=== PATIENT | female | born 1990 | race Caucasian/White ===

== ENCOUNTER 2017-06-10 22:47 | Inpatient (IN) | payer OTHER ==
[2017-06-10] MEDS: LACTATED RINGER'S 500 ML IV (23:08)
[2017-06-10] MEDS ORDERED: METHYLERGONOVINE 0.2 MG INJ IM (23:30)
[2017-06-10] MEDS ORDERED: HYDROCODONE/APAP (5/325) TAB PO (23:30)
[2017-06-10] MEDS ORDERED: MISOPROSTOL 200 MCG TAB PR (23:30)
[2017-06-10] MEDS ORDERED: BUTORPHANOL 2 MG INJ IV (23:30)
[2017-06-10] MEDS ORDERED: OXYTOCIN 30 UNITS/LR 500 ML IV ×2 (23:30)
[2017-06-10] MEDS ORDERED: CARBOPROST 250 MCG INJ IM (23:30)
[2017-06-10] MEDS ORDERED: LIDOCAINE 1% (MPF) 30 ML INJ INJ (23:30)
[2017-06-10] MEDS ORDERED: IBUPROFEN 600 MG TAB PO (23:30)
[2017-06-10] MEDS: LACTATED RINGER'S 1,000 ML IV (23:55)
[2017-06-11 01:03] LABS: ADD MAN DIFF? NO
[2017-06-11 01:06] LABS: WHITE BLOOD COUNT 5.4 10^3/ul (4.8-10.8)
[2017-06-11 01:06] LABS: BASOPHILS % 0.6 % (0.0-2.0); EOSINOPHILS # 0.1 10^3/ul (0.0-0.5); EOSINOPHILS % 2.4 % (0.0-7.0); HEMATOCRIT 36.3 % (37.0-47.0); HEMOGLOBIN 12.9 g/dl (12.0-16.0); LYMPHOCYTES % 36.8 % (15.0-51.0); MEAN CORPUSCULAR HEMOGLOBIN 31.8 pg (29.0-33.0); MEAN CORPUSCULAR HGB CONC 35.5 g/dl (32.0-37.0); MEAN CORPUSCULAR VOLUME 89.4 fl (82.0-101.0); MEAN PLATELET VOLUME 11.5 fl (7.4-10.4); MONOCYTE # 0.4 10^3/ul (0.3-0.9); MONOCYTES % 6.5 % (0.0-11.0); NEUTROPHIL # 2.9 10^3/ul (1.6-7.5); NUCLEATED RED BLOOD CELLS% 0.6 /100WBC (0.0-0.0); PLATELET COUNT 115 10^3/UL (140-415); RED BLOOD COUNT 4.06 10^6/ul (4.20-5.40); RED CELL DISTRIBUTION WIDTH 13.3 % (11.5-14.5)
[2017-06-11 01:24] LABS: PROTIME 11.1 Sec (11.9-14.9); PT RATIO 0.9
[2017-06-11 01:41] LABS: HEPATITIS B SURFACE ANTIGEN NEGATIVE (NEGATIVE)
[2017-06-11] MEDS: LACTATED RINGER'S 500 ML IV ×3 (03:08→11:08)
[2017-06-11] MEDS: LACTATED RINGER'S 1,000 ML IV (07:19)
[2017-06-11] MEDS: BUTORPHANOL 2 MG INJ IV (08:12)
[2017-06-11] MEDS: OXYTOCIN 30 UNITS/LR 500 ML IV ×4 (10:52→18:15)
[2017-06-11] MEDS ORDERED: DIBUCAINE 1% 30 GM OINT PR (16:00)
[2017-06-11] MEDS ORDERED: OXYCODONE/ASPIRIN (4.88/325) TAB PO ×2 (16:00)
[2017-06-11] MEDS ORDERED: ACETAMINOPHEN 325 MG TAB PO (16:00)
[2017-06-11] MEDS ORDERED: HYDROCODONE/APAP (5/325) TAB PO ×2 (16:00)
[2017-06-11] MEDS ORDERED: ONDANSETRON 4 MG INJ IV (16:00)
[2017-06-11] MEDS: WITCH HAZEL/GLYCERIN PAD PR (16:52)
[2017-06-11] MEDS: BENZOCAINE 20% 56 ML SPRAY TOP (16:52)
[2017-06-11] MEDS: IBUPROFEN 600 MG TAB PO ×2 (18:14→23:38)
[2017-06-11] MEDS: SENNA/DOCUSATE NA (8.6MG/50MG) TAB PO (21:27)
[2017-06-11] MEDS: LANOLIN 7 GM TUBE TOP (21:27)
[2017-06-11 22:30] LABS: RAPID PLASMA REAGIN NONREACTIVE (NR)
[2017-06-12] MEDS: IBUPROFEN 600 MG TAB PO ×3 (05:49→18:00)
[2017-06-12 08:14] LABS: ABNORMAL IP MESSAGE 1; HEMATOCRIT 32.2 % (37.0-47.0); HEMOGLOBIN 11.3 g/dl (12.0-16.0); MEAN CORPUSCULAR HEMOGLOBIN 31.8 pg (29.0-33.0); MEAN CORPUSCULAR HGB CONC 35.1 g/dl (32.0-37.0); MEAN CORPUSCULAR VOLUME 90.7 fl (82.0-101.0); MEAN PLATELET VOLUME 12.1 fl (7.4-10.4); NUCLEATED RED BLOOD CELLS% 0.2 /100WBC (0.0-0.0); PLATELET COUNT 96 10^3/UL (140-415); RED BLOOD COUNT 3.55 10^6/ul (4.20-5.40); RED CELL DISTRIBUTION WIDTH 14.3 % (11.5-14.5)
[2017-06-12 08:14] LABS: WHITE BLOOD COUNT 9.8 10^3/ul (4.8-10.8)
[2017-06-12 08:23] LABS: ADD MAN DIFF? YES; POSITIVE DIFF @See below
[2017-06-12] MEDS: SENNA/DOCUSATE NA (8.6MG/50MG) TAB PO ×2 (09:20→21:24)
[2017-06-12 09:42] LABS: ANISOCYTOSIS 1+ (0-0); BAND NEUTROPHILS #M 1.3 10^3/ul (0.0-0.6); BAND NEUTROPHILS % (M) 14 % (0-4); EOSINOPHILS % (M) 1 % (0-7); LYMPHOCYTES #M 1.1 10^3/ul (0.8-2.9); LYMPHOCYTES % (M) 12 % (15-51); MICROCYTOSIS 1+ (0-0); MONOCYTE #M 0.1 10^3/ul (0.3-0.9); MONOCYTES % (M) 2 % (0-11); PLATELET ESTIMATE NORMAL; REACTIVE LYMPHOCYTES #M 0.1 10^3/ul (0.0-0.0); REACTIVE LYMPHOCYTES% (M) 2 % (0-0); SEG NEUT #M 6.9 10^3/ul (1.7-7.5); SEGMENTED NEUTROPHILS (M) % 69 % (39-77); SMUDGE%M 13 % (0-0)
[2017-06-12] MEDS: INFLUENZA VIRUS VACCINE 0.5 ML (DISPENSING) IM* (15:19)
[2017-06-13] MEDS: IBUPROFEN 600 MG TAB PO ×3 (06:03→12:13)
[2017-06-13] MEDS: SENNA/DOCUSATE NA (8.6MG/50MG) TAB PO (08:47)
[2017-06-13] MEDS ORDERED: INFLUENZA VIRUS VACCINE 0.5 ML (DISPENSING) IM* (09:00)
[2017-06-13] MEDS: MEASLES,MUMPS,RUBELLA VACCINE INJ SC* (09:00)
== END 2017-06-13 16:50 | disposition home or self-care (01) | DRG 775 ==
LOC: OBT 22:47 → PP1 06-11 14:18 → L-D 22:49 → OBT 23:44 → L-D 23:45
PROVIDERS: Obstetrics & Gynecology
PROC: 10E0XZZ Delivery of Products of Conception, External Approach (ICD-10-PCS; principal; 2017-06-11)
PROC: 0HQ9XZZ Repair Perineum Skin, External Approach (ICD-10-PCS; 2017-06-11)
PROC: 3E033VJ Introduction of Other Hormone into Peripheral Vein, Percutaneous Approach (ICD-10-PCS; 2017-06-11)
DX: O71.4 Obstetric high vaginal laceration alone (principal); Z37.0 Single live birth; Z3A.37 37 weeks gestation of pregnancy
CPT/HCPCS: 36415; 85025; 85610; 85730; 86592; 86850; 86870; 86900; 86901; 87340; 90686; 96360; 96361; 99464

== ENCOUNTER 2018-06-22 05:50 | Emergency (ER) | payer OTHER | END 2018-06-22 06:50 | disposition home or self-care (01) | LOC: FTE 05:50 | DX: H66.92 Otitis media, unspecified, left ear (principal) | CPT/HCPCS: 99283; Z7502 ==

== ENCOUNTER 2018-12-08 20:26 | Emergency (ER) | payer OTHER ==
[2018-12-08] MEDS: ACETAMINOPHEN 325 MG TAB PO (21:04)
[2018-12-08 21:19] LABS: ADD UMIC YES; UR ASCORBIC ACID NEGATIVE (NEGATIVE); UR BILIRUBIN (Dip) NEGATIVE (NEGATIVE); UR BLOOD (Dip) 2+ mg/dL (NEGATIVE); UR CLARITY CLOUDY (CLEAR); UR COLOR YELLOW (YELLOW); UR GLUCOSE (Dip) NEGATIVE (NEGATIVE); UR KETONES (Dip) NEGATIVE (NEGATIVE); UR LEUKOCYTE ESTERASE (Dip) 3+ Leu/ul (NEGATIVE); UR NITRITE (Dip) NEGATIVE (NEGATIVE); UR RBC 56 /HPF (0-5); UR SQUAMOUS EPITHELIAL CELL FEW /HPF (FEW); UR TOTAL PROTEIN (Dip) NEGATIVE (NEGATIVE); UR UROBILINOGEN (Dip) NEGATIVE (NEGATIVE); UR WBC 42 /HPF (0-5)
[2018-12-08] MEDS ORDERED: FLUCONAZOLE 150 MG TAB PO (22:00)
[2018-12-08] MEDS: FLUCONAZOLE 100 MG TAB PO (22:18)
== END 2018-12-08 22:21 | disposition home or self-care (01) ==
LOC: FTE 20:26
DX: N30.01 Acute cystitis with hematuria (principal); B37.3 Candidiasis of vulva and vagina
CPT/HCPCS: 81001; 81025; 87220; 99284